=== PATIENT | male | born 1980 | race African-American/Black ===

== ENCOUNTER 2018-11-13 17:55 | Emergency (ER) | payer MEDICAID, OTHER ==
[~2018-11-13] VITALS: Ht 182.9 cm; Wt 135.0 kg
[2018-11-13 18:01] VITALS: BP 190/120
== END 2018-11-13 20:21 | disposition left against medical advice (07) ==
LOC: ER 17:55
DX: Z53.21 Procedure and treatment not carried out due to patient leaving prior to being seen by health care provider (principal)